=== PATIENT | female | born 1975 | race Caucasian/White ===

== ENCOUNTER 2018-01-27 12:18 | Emergency (ER) | payer OTHER ==
--- NOTE | 2018-01-27 13:15 | PD ---
HPI Chief Complaint s/p fall Date Seen: Jan 27, 2018 Time Seen: 13:09 Travel History International Travel<30 Days: No Contact w/Intl Traveler<30Days: No Known Affected Area: No History of Present Illness HPI Pt is a pleasant 42y/o G1 @ 28.3wks. She is visiting town from [place]. This is an IVF . She was walking along a sidewalk around 11am today and tripped/fell. She landed on her hands, knees, and R side of her abdomen. She reports some tenderness in that area. No LOF or VB. +FM. Weeks Gestation: 28 Para: 0 : 1 History Past Medical History Medical History: Denies Significant Hx Obstetric History Obstetric History 1. current, IVF Past Surgical History Narrative Surgical LSC appy knee meniscus repair Family History Family History: Negative Social History Alcohol Use: No Tobacco Use: No Substance Abuse: No Allergies-Medications Narrative Medication PNVs Review of Systems Except as stated in HPI: all other systems reviewed are Neg Physical Exam Narrative General: well developed, well nourished, no acute distress HEENT: normocephalic atraumatic, extraocular movements intact, neck supple Abdomen: soft, gravid, nontender, nondistended Uterus: fundus soft Extremities: full range of motion Skin: normal coloration, no rashes, no suspicious skin lesions noted Neurologic: cranial nerves 2-12 grossly intact, normal muscle tone, normal gait Psychiatric: normal mood and affect, appropriate FHTs: 125-130, +accels, no decels, moderate variability, reactive [place]: irregular contractions with irritability Cvx: deferred Data Data Vital Signs Reviewed: Yes Orders Orders Vital Signs (Adult) .ON ADMISSION (01/27/18 12:21) ^ Labor Status (01/27/18 12:21) ^ Non Stress Test (01/27/18 12:21) Us Ob Bpp Wo Nst (01/27/18 12:21) Fibrinogen (01/27/18 13:04) Kleihauer Betke ( Hgb) (01/27/18 13:04) Cbc No Diff, Includes Plts (01/27/18 13:04) Abo/Rh Blood Type (01/27/18 13:04) MDM Plan 42y/o G1 @ 28.3wks s/p fall with direct abdominal trauma. -- CBC, T&S, KB, fibrinogen -- US/BPP -- CEFM/toco x minimum of 4hrs; if contractions persist or increase, consider obs with 24hr monitoring Diagnosis Diagnosis: Primary Impression: 28 weeks gestation of Additional Impressions: Status post fall resulting from in vitro fertilization AMA (advanced maternal age) primigravida 35+ Lorie Cantu MD Jan 27, 2018 13:15
[2018-01-27 13:30] VITALS: PULSE 94
[2018-01-27 13:35] VITALS: PULSE 94
[2018-01-27 13:38] VITALS: BP 123/72; PULSE 83
[2018-01-27 13:40] VITALS: PULSE 83
[2018-01-27 13:40] LABS: HEMATOCRIT 35.4 % (35.0-46.0); HEMOGLOBIN 12.1 GM/DL (11.6-15.3); MEAN CELL VOLUME 88.7 FL (80.0-100.0); MEAN CORPUSCULAR HEMOGLOBIN 30.2 PG (27.0-34.0); MEAN PLATELET VOLUME 8.1 FL (7.0-11.0); PLATELET COUNT 343 TH/MM3 (150-450); WHITE BLOOD COUNT 11.5 TH/MM3 (4.0-11.0)
[2018-01-27 13:45] VITALS: RESP 20; TEMP 98
== END 2018-01-27 16:09 | disposition home or self-care (01) ==
LOC: HOBED 12:18
DX: O9A.213 Injury, poisoning and certain other consequences of external causes complicating pregnancy, third trimester (principal); S39.91XA Unspecified injury of abdomen, initial encounter; O09.513 Supervision of elderly primigravida, third trimester; W01.0XXA Fall on same level from slipping, tripping and stumbling without subsequent striking against object, initial encounter; Y93.01 Activity, walking, marching and hiking; Y92.480 Sidewalk as the place of occurrence of the external cause; Z3A.28 28 weeks gestation of pregnancy
CPT/HCPCS: 59025; 76819; 83030; 85027; 85384; 86900; 86901